=== PATIENT | male | born 1995 | race Caucasian/White ===

== ENCOUNTER 2016-11-29 21:03 | Emergency (ER) | payer MEDICAID, OTHER ==
--- NOTE | 2016-11-29 21:17 | ER Document Report ---
ED Substance Abuse / Acc. OD - General Mode of Arrival: Medic Information source: Patient, Emergency Med Personnel - [facility] Patient complains to provider of: Other Onset: Just prior to arrival <KARLA NIX - Last Filed: 11/29/16 22:42> <TREMAYNE SALAS - Last Filed: 11/29/16 23:43> - General Chief Complaint: Possible Overdose Stated Complaint: POSSIBLE OVERDOSE Time Seen by Provider: 11/29/16 21:08 Notes: Patient is a 21-year-old male who presents to the emergency department today after taking a friend's Seroquel this evening prior to arrival. Patient states he took the medication because he had a "a shitty week" and he needed some sleep. Patient states he has not slept in the last 3 or 4 days. Patient states his mother had been telling him for the last year that his best friend could come on vacation with him and last week she told him that he could no longer come which upset him. Patient states he arrived in [place] today around noon and took x1 "Seroquel 400 ER" at approximately 1800. Patient states he was not trying to hurt himself by taking this, he just wanted to get some sleep. (KARLA NIX) - Related Data Allergies/Adverse Reactions: amoxicillin [From Augmentin] Allergy (Verified 11/29/16 23:38) clavulanic acid [From Augmentin] Allergy (Verified 11/29/16 23:38) Past Medical History - General Information source: Patient, Emergency Med Personnel - Social History Smoking Status: Current Every Day Smoker Cigarette use (# per day): Yes Chew tobacco use (# tins/day): Yes Frequency of alcohol use: Social Drug Abuse: Marijuana, Prescription drugs Family History: Reviewed & Not Pertinent Psychiatric Medical History: Reports: Hx Depression <KARLA NIX - Last Filed: 11/29/16 22:42> Review of Systems - Review of Systems -: Yes ROS unobtainable due to patient's medical condition - somnolent <KARLA NIX - Last Filed: 11/29/16 22:42> Physical Exam <KARLA NIX - Last Filed: 11/29/16 22:42> <TREMAYNE SALAS - Last Filed: 11/29/16 23:43> - Vital signs Vitals: Temp Pulse Resp BP Pulse Ox 97.5 F 113 H 16 120/69 97 11/29/16 21:12 11/29/16 21:12 11/29/16 21:12 11/29/16 21:12 11/29/16 21:12 - Notes Notes: PHYSICAL EXAM GENERAL: Somnolent, frequently falls asleep during exam, speech is slow but appropriate. Appears somewhat intoxicated. No acute distress. HEAD: Normocephalic, atraumatic. EYES: Pupils equal, round, and reactive to light. Extraocular movements intact. ENT: Oral mucosa moist, tongue midline. NECK: Full range of motion. Supple. Trachea midline. LUNGS: Clear to auscultation bilaterally, no wheezes, rales, or rhonchi. No respiratory distress. HEART: Mildly tachycardic, regular rhythm. No murmurs, gallops, or rubs. ABDOMEN: Soft, non-tender. Non-distended. Bowel sounds present in all 4 quadrants. EXTREMITIES: Moves all 4 extremities spontaneously. No edema, radial and dorsalis pedis pulses 2/4 bilaterally. No cyanosis. NEUROLOGICAL: Alert and oriented x3. Normal speech. Biceps and patellar DTRs 2+ bilaterally. PSYCH: Normal affect, normal mood. SKIN: Warm, dry, normal turgor. No rashes or lesions noted. (KARLA NIX) Course - Laboratory Result Diagrams: 11/29/16 21:30 11/29/16 21:30 <KARLA NIX - Last Filed: 11/29/16 22:42> - Laboratory Result Diagrams: 11/29/16 21:30 11/29/16 21:30 <TREMAYNE SALAS - Last Filed: 11/29/16 23:43> - Re-evaluation Re-evalutation: 11/29/16 23:28 CBC shows slight leukocytosis of 12.0 otherwise unremarkable, chemistries normal , urinalysis unremarkable, urine drug screen shows opiates, benzodiazepines and marijuana, only admits to marijuana. Undetectable salicylates, acetaminophen and alcohol. No EKG abnormalities. Patient is observed on a monitor given his degree of somnolence. Patient is rechecked and is still able to be awakened, is able to identify his mother when he wakes up. Mother states that there were at least 15 more Seroquel pills at home, provides more information including the fact that today is the anniversary of a good friend of his from a drug overdose 1 year ago. States that they were down here to attend [facility]. I am concerned by this collateral information. Patient will remain as an IVC, will be seen by mental health in the morning. 11/29/16 23:43 (TREMAYNE SALAS) - Vital Signs Vital signs: Temp Pulse Resp BP Pulse Ox 97.5 F 113 H 14 127/61 H 97 11/29/16 21:12 11/29/16 21:12 11/29/16 23:02 11/29/16 23:02 11/29/16 21:12 - Laboratory Laboratory results interpreted by me: 11/29/16 11/29/16 21:30 21:30 WBC 12.0 H Salicylates < 1.0 L Acetaminophen < 10 L - EKG Interpretation by Me Additional EKG results interpreted by me: 11/29/16 23:26 EKG shows sinus rhythm at a rate of 93, normal axis, normal intervals, no ST segment elevations or depressions, no T-wave inversions per my interpretation. ( TREMAYNE SALAS) Discharge <KARLA NIX - Last Filed: 11/29/16 22:42> <TREMAYNE SALAS - Last Filed: 11/29/16 23:43> - Discharge Clinical Impression: Benzodiazepine abuse, Opiate abuse, episodic Overdose Qualifiers: Encounter type: initial encounter Injury intent: intentional self-harm Qualified Code(s): T50.902A - Poisoning by unspecified drugs, medicaments and biological substances, intentional self-harm, initial encounter Condition: Stable Disposition: PSYCH HOSP/UNIT Scribe Attestation: 11/29/16 23:43 I personally performed the services described in the documentation, reviewed and edited the documentation which was dictated to the scribe in my presence, and it accurately records my words and actions. (TREMAYNE SALAS) Scribe Documentation - Scribe Written by Maryse:: Maryse Gonzalez, 11/29/2016 2239 acting as scribe for :: Yasmin <KARLA NIX - Last Filed: 11/29/16 22:42>
[2016-11-29 21:44] LABS: ABSOLUTE EOSINOPHILS # (AUTO) 0.1 10^3/uL (0.0-0.6); ABSOLUTE LYMPHOCYTES (AUTO) 3.7 10^3/uL (0.5-4.7); ABSOLUTE NEUT (AUTO) 7.2 10^3/uL (1.7-8.2); BASOPHILS % (AUTO) 0.2 % (0-2); EOSINOPHILS % (AUTO) 1.2 % (0-6); HEMATOCRIT 44.5 % (37.9-51.0); HEMOGLOBIN 14.7 g/dL (13.5-17.0); HGB HCT DIFFERENCE -0.4; LYMPHOCYTES % (AUTO) 30.5 % (13-45); MEAN CORPUSCULAR VOLUME 88 fl (80-97); MONOCYTES % (AUTO) 8.2 % (3-13); RED BLOOD COUNT 5.07 10^6/uL (4.35-5.55); RED CELL DISTRIBUTION WIDTH 13.1 % (11.5-14.0); SEGMENTED NEUTROPHILS % (AUTO) 59.9 % (42-78)
[2016-11-29 21:50] LABS: APPEARANCE,URINE CLEAR; BILIRUBIN,URINE NEGATIVE (NEGATIVE); GLUCOSE, URINE NEGATIVE (NEGATIVE); KETONES,URINE NEGATIVE (NEGATIVE); LEUKOCYTE ESTERASE,URINE NEGATIVE (NEGATIVE); NITRITE,URINE NEGATIVE (NEGATIVE); PROTEIN,URINE NEGATIVE (NEGATIVE); URINE SPECIFIC GRAVITY 1.005; UROBILINOGEN,URINE NEGATIVE mg/dL (<2.0)
[2016-11-29 21:59] LABS: ALANINE AMINOTRANSFERASE 37 U/L (21-72); ALBUMIN 3.8 g/dL (3.5-5.0); ALKALINE PHOSPHATASE 90 U/L (38-126); ANION GAP 10 (5-19); ASPARTATE AMINO TRANSFERASE 25 U/L (17-59); BILIRUBIN,DIRECT 0.3 mg/dL (0.0-0.4); BILIRUBIN,TOTAL 0.4 mg/dL (0.2-1.3); BLOOD UREA NITROGEN 11 mg/dL (7-20); CALCIUM 9.4 mg/dL (8.4-10.2); CARBON DIOXIDE 27 mmol/L (22-30); CHLORIDE 105 mmol/L (98-107); CREATININE RESULT 0.94 mg/dL (0.52-1.25); GLUCOSE 88 mg/dL (75-110); POTASSIUM 4.1 mmol/L (3.6-5.0); SODIUM 141.6 mmol/L (137-145); TOTAL PROTEIN 6.6 g/dL (6.3-8.2)
--- NOTE | 2016-11-29 21:59 | EKG REPORT ---
SEVERITY:- NORMAL ECG - SINUS RHYTHM : Confirmed by: Michael Ortega MD 29-Nov-2016 21:57:29
[2016-11-29 22:02] LABS: ALCOHOL < 10 mg/dL (NONE DETECTED)
[2016-11-29 22:03] LABS: URINE BARBITURATES SCREEN NEGATIVE; URINE METHADONE SCREEN NEGATIVE; URINE OPIATES LOW UNCONFIRMED POSITIVE; URINE PHENCYCLIDINE SCREEN NEGATIVE
--- NOTE | 2016-11-30 11:54 | ER Document Report ---
ED Psych Disorder / Suicide - General Mode of Arrival: Medic Information source: Patient, Parent - HPI Patient complains to provider of: Overdose - pt reported upon arrival that he took one 400 mg Seroquel tab; however, family reported more were missing., Suicidal ideation - unknown intent Onset: Just prior to arrival Onset was: Sudden Suicide Risk Factors: Frightened friends/family, Male, Substance abuse - + Opiates, THC, and Benzos, Other mental health dx. Overdose of: Other - Seroquel Similar symptoms previously: Yes - family reported long history of sa Recently seen / treated by doctor: No <ELIJAH ADAMS - Last Filed: 11/30/16 11:33> <MICHELLE BELTRÁN - Last Filed: 11/30/16 12:30> - General Chief Complaint: Possible Overdose Stated Complaint: POSSIBLE OVERDOSE Time Seen by Provider: 11/29/16 21:08 - HPI Notes: Patient is a 21 year old male who presented overnight with family with c/o possible overdose of unknown intent. Patient upon arrival reported he took one 400 mg tab of Seroquel. Patient was held for evaluation after family reported concerns for possible suicide intent due to the patient being in town for the [facility] service for a friend who overdosed on heroin 1 year ago. Patient this morning states he wasn't trying to kill himself and took a tab of Seroquel that his friend gave him because he wasn't feeling well. Patient states he started feeling "weird," and his mom and sister were saying he wasnt acting like him self so they brought him here. Mother, Samia Lewis [phone] and sister who is also on speaker phone: states the patient has a long substance abuse history, to also include 3 days in [facility], which she describes a a mh/sa facility. Mother reports she was not, and is not concerned this was a suicide attempt. Sister states they smoked a joint of weed, and he was not acting himself, etc. She states he does have a history of drug use, etc and they felt it was prudent to come to the ER for medical attention. Mother states she does not think this was a suicide attempt, nor is she concerned about his safety in regards to SI. Sister reported that the joint the smoked was likely laced with a crushed tab of Xanax. Patient this morning is A&O. Mood is irritable with normal and or congruent affect. Patient denies SI/HI intent, plan, or means. Patient denies A/V H; delusions not noted. Thought processes were organized, but guarded. Conversational speech was WNL. Intellectual abilities were estimated within average range. Attention and focus were fair. Insight, judgment, and impulse control were poor. Unspecified Opioid Use Disorder Unspecified Anxiolytic Use Disorder Unspecified Cannabis Use Disorder Patient is psychiatrically cleared for discharge. Patient is recommended for rescind IVC as he no longer meets criteria per the [id number] as he denies SI/HI. Additionally, mother and sister report they are not concerned this episode was a suicide attempt, and further deny patient has been expressing SI. Patient will be presented with local resources for the remainder of his stay here in the this area. Patient is recommended to follow up with his home provider upon his return to [place]. I consulted with Dr. Bowers in regards to the care and management of this patient. ED MD is in agreement with disposition and recommendations. (ELIJAH ADAMS) - Related Data Allergies/Adverse Reactions: amoxicillin [From Augmentin] Allergy (Verified 11/29/16 23:38) clavulanic acid [From Augmentin] Allergy (Verified 11/29/16 23:38) Past Medical History - General Information source: Patient, Emergency Med Personnel - Social History Smoking Status: Current Every Day Smoker Cigarette use (# per day): Yes Chew tobacco use (# tins/day): Yes Frequency of alcohol use: Social Drug Abuse: Marijuana, Prescription drugs Family History: Reviewed & Not Pertinent Patient has suicidal ideation: No Patient has homicidal ideation: No Psychiatric Medical History: Reports: Hx Depression <ELIJAH ADAMS - Last Filed: 11/30/16 11:33> Course - Laboratory Result Diagrams: 11/29/16 21:30 11/29/16 21:30 <ELIJAH ADAMS - Last Filed: 11/30/16 11:33> - Laboratory Result Diagrams: 11/29/16 21:30 11/29/16 21:30 <MICHELLE BELTRÁN - Last Filed: 11/30/16 12:30> - Vital Signs Vital signs: Temp Pulse Resp BP Pulse Ox 98.0 F 80 16 149/72 H 99 11/30/16 12:27 11/30/16 12:27 11/30/16 12:27 11/30/16 12:27 11/30/16 12:27 - Laboratory Laboratory results interpreted by me: 11/29/16 11/29/16 21:30 21:30 WBC 12.0 H Salicylates < 1.0 L Acetaminophen < 10 L Discharge <ELIJAH ADAMS - Last Filed: 11/30/16 11:33> <MICHELLE BELTRÁN - Last Filed: 11/30/16 12:30> - Discharge Clinical Impression: Benzodiazepine abuse, Opiate abuse, episodic Overdose Qualifiers: Encounter type: initial encounter Injury intent: intentional self-harm Qualified Code(s): T50.902A - Poisoning by unspecified drugs, medicaments and biological substances, intentional self-harm, initial encounter Condition: Stable Disposition: HOME, SELF-CARE Additional Instructions: Overdose You have taken more medication than you should have. After your evaluation and care, it is felt that your overdose is not likely to be harmful or of any significant consequences to you and you are being discharged. In the future, you should be careful not to take more medications than what is prescribed for you. Although your overdose does not seem to be of any danger to you at this time, if you develop any unusual or unexpected symptoms after your discharge, you should return to the Emergency Department immediately for re-evaluation. Please refrain from substance abuse, to include prescription pills which are not prescribed to you. You have been provided a list of resources should you remain in this area and would like to follow up with substance abuse counseling. Referrals: [facility] [Provider Group] - Follow up as needed Scribe Attestation: 11/29/16 23:43 I personally performed the services described in the documentation, reviewed and edited the documentation which was dictated to the scribe in my presence, and it accurately records my words and actions. (ELIJAH ADAMS)
[2016-11-30 12:28] VITALS: BP 149/72
== END 2016-11-30 12:27 | disposition home or self-care (01) ==
LOC: ER 21:03
DX: T50.902A Poisoning by unspecified drugs, medicaments and biological substances, intentional self-harm, initial encounter (principal); F17.210 Nicotine dependence, cigarettes, uncomplicated; F11.10 Opioid abuse, uncomplicated; F19.10 Other psychoactive substance abuse, uncomplicated
CPT/HCPCS: 36415; 80053; 80307; 81001; 85025; 93005; 93010; 99285